=== PATIENT | male | born 1980 | race African-American/Black ===

== ENCOUNTER 2020-06-24 22:15 | Emergency (ER) | payer OTHER ==
[~2020-06-24] VITALS: Ht 170.2 cm; Wt 48.1 kg
[2020-06-24 22:26] VITALS: BP 125/73
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
--- NOTE | 2020-06-24 22:35 | NUR ---
ED Nurse Note: ERMD AT BEDSIDE
[2020-06-24] MEDS ORDERED: IBUPROFEN600 M1 ORAL (23:03)
[2020-06-24] MEDS ORDERED: ACETAMINOPHEN500 M3 ORAL (23:04)
--- NOTE | 2020-06-24 23:14 | NUR ---
ED Nurse Note: PT TAKEN TO XRAY IN STABLE CONDITION
--- NOTE | 2020-06-24 23:20 | NUR ---
ED Nurse Note: pt brought back from xrays in stable condition. all medications administered, pt tolerated well no ss of distress noted. will continue to monitor.
--- NOTE | 2020-06-24 23:30 | NUR ---
ED Nurse Note: ERMD at bedside
[2020-06-24 23:55] VITALS: BP 122/78
--- NOTE | 2020-06-24 23:55 | NUR ---
ER DISCHARGE NOTE: Patient is cleared to be discharged HOME per ERMD, pt is aox4, 99% on room air, with stable vital signs. pt was given dc and prescription instructions, pt was able to verbalize understanding, pt id band removed without complications. pt is able to ambulate with steady gait. pt took all belongings.
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
--- NOTE | 2020-06-25 19:07 | Diagnostic Imaging Report ---
Indications: Reason For Exam: PAIN Technique: 3 views of the cervical spine Comparison: None Findings: Bony alignment is normal. No prevertebral soft tissue swelling. No acute fracture. No dislocation. Vertebral body heights are preserved. The disc spaces are preserved. Impression: Negative
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
== END 2020-06-24 23:55 | disposition home or self-care (01) ==
LOC: EMR 22:55
DX: S40.012A Contusion of left shoulder, initial encounter (principal); S16.1XXA Strain of muscle, fascia and tendon at neck level, initial encounter; V23.4XXA Motorcycle driver injured in collision with car, pick-up truck or van in traffic accident, initial encounter; Y92.411 Interstate highway as the place of occurrence of the external cause
CPT/HCPCS: 72040; 99284